=== PATIENT | male | born 1995 | race Caucasian/White ===

== ENCOUNTER 2017-06-19 06:21 | Emergency (ER) | payer SELFPAY ==
[~2017-06-19] VITALS: Ht 180.3 cm; Wt 63.8 kg
[~2017-06-19 06:21] MED LIST: ABILIFY1 MG/ML OR; ASMANEX IN; CEPHALEXIN500 MG OR; INVEGA3 MG OR; LORTAB 5 OR; NAPROSYN500 MG OR; NO HOME MEDS; PROVENTIL INH17 GM IN; PROZAC10 MG OR; RISPERDAL2 MG OR
[2017-06-19] MEDS ORDERED: CEPHALEXIN500 MG PO (06:31)
[2017-06-19 08:13] LABS: HEMATOCRIT 37.2 % (39.0-50.0); HEMOGLOBIN 13.4 g/dl (14.0-18.0); IMMATURE GRANULOCYTES 0.3 % (0.0-1.0); MEAN CORPUSCULAR HGB 32.8 pG CALC (26.0-32.0); NEUT# 10.69 thou/uL (1.82-7.42); RED BLOOD COUNT 4.09 mill/uL (4.70-6.10); RED CELL DISTRI WIDTH 11.9 % (11.5-15.5)
[2017-06-19 08:22] LABS: ALBUMIN 4.4 g/dL (3.2-5.0); ALKALINE PHOSPHATASE 89 u/l (38-126); BILIRUBIN, TOTAL 0.6 mg/dL (0.0-1.4); BUN 16 mg/dL (9-20); BUN/CREATININE RATIO 17 (12-20 (CALC)); CALCIUM 9.8 mg/dL (8.4-10.2); CARBON DIOXIDE 27 mmol/l (22-30); CHLORIDE 99 mmol/l (95-108); GFR > 60 ML/MIN (>=60 (CALC)); GFR FOR AFR.AMER. > 60 ML/MIN (>=60 (CALC)); GLUCOSE 96 mg/dL (75-110); POTASSIUM 3.6 mmol/l (3.5-5.1); SGOT/AST 23 u/l (17-59); SGPT/ALT 32 u/l (21-72); TOTAL PROTEIN 7.4 g/dL (6.3-8.2)
[2017-06-19 08:25] LABS: ANION GAP 17 (6-22 (CALC)); SODIUM 139 mmol/l (137-146)
[2017-06-19] MEDS ORDERED: LORTAB 5-325 MG1 TAB PO (09:26)
[2017-06-19] MEDS ORDERED: AUGMENTIN875TAB PO (09:26)
[2017-06-19 09:28] VITALS: BP 133/95
== END 2017-06-19 09:36 | disposition home or self-care (01) | DRG 159 ==
LOC: ED 06:21
PROVIDERS: Emergency Medicine
DX: K04.7 Periapical abscess without sinus (principal); R22.0 Localized swelling, mass and lump, head; K08.89 Other specified disorders of teeth and supporting structures
CPT/HCPCS: Q9967

== ENCOUNTER 2017-06-25 14:40 | Emergency (ER) | payer SELFPAY ==
[~2017-06-25] VITALS: Ht 180.3 cm; Wt 73.0 kg
[~2017-06-25 14:40] MED LIST changes: +AUGMENTIN875TAB PO; +CEPHALEXIN500 MG PO; +LORTAB 5-325 MG1 TAB PO
[2017-06-25] MEDS ORDERED: KEFLEX500 M1 PO (14:56)
[2017-06-25] MEDS ORDERED: AMOX/K CLAV875 M1 PO (14:57)
[2017-06-25] MEDS ORDERED: LORTAB 10-325 M1 TAB PO (14:58)
[2017-06-25] MEDS ORDERED: AUGMENTIN875TAB PO (16:10)
[2017-06-25] MEDS ORDERED: ZOFRAN4 M1 PO (16:10)
[2017-06-25] MEDS ORDERED: NORCO1 TA1 PO (16:10)
[2017-06-25 16:40] VITALS: BP 145/88
== END 2017-06-25 16:45 | disposition home or self-care (01) | DRG 159 ==
LOC: ED 14:40
DX: K08.89 Other specified disorders of teeth and supporting structures (principal); K04.7 Periapical abscess without sinus; S02.5XXA Fracture of tooth (traumatic), initial encounter for closed fracture; R22.0 Localized swelling, mass and lump, head

== ENCOUNTER 2017-07-09 18:52 | Emergency (ER) | payer SELFPAY ==
[~2017-07-09] VITALS: Ht 152.4 cm; Wt 63.8 kg
[~2017-07-09 18:52] MED LIST changes: +AMOX/K CLAV875 M1 PO; +KEFLEX500 M1 PO; +LORTAB 10-325 M1 TAB PO; +NORCO1 TA1 PO; +ZOFRAN4 M1 PO
[2017-07-09] MEDS ORDERED: LORTAB 10-325 M1 TAB PO (19:52)
[2017-07-09 19:55] VITALS: BP 149/83
== END 2017-07-09 19:55 | disposition home or self-care (01) | DRG 159 ==
LOC: ED 18:52
DX: K08.89 Other specified disorders of teeth and supporting structures (principal); K04.7 Periapical abscess without sinus

== ENCOUNTER 2017-12-04 11:07 | Emergency (ER) | payer SELFPAY ==
[~2017-12-04] VITALS: Ht 182.9 cm; Wt 66.8 kg
[2017-12-04 12:14] LABS: ANION GAP 18 (6-22 (CALC)); BUN 16 mg/dL (9-20); BUN/CREATININE RATIO 20 (12-20 (CALC)); CALCIUM 10.6 mg/dL (8.4-10.2); CARBON DIOXIDE 26 mmol/l (22-30); CHLORIDE 106 mmol/l (95-108); CREATININE 0.8 mg/dL (0.7-1.3); GFR > 60 ML/MIN (>=60 (CALC)); GFR FOR AFR.AMER. > 60 ML/MIN (>=60 (CALC)); GLUCOSE 108 mg/dL (75-110); SODIUM 145 mmol/l (137-146)
[2017-12-04 13:32] VITALS: BP 134/88
== END 2017-12-04 13:35 | disposition home or self-care (01) | DRG 556 ==
LOC: ED 11:07
PROVIDERS: Family Medicine
DX: M62.838 Other muscle spasm (principal); F17.290 Nicotine dependence, other tobacco product, uncomplicated; I37.0 Nonrheumatic pulmonary valve stenosis

== ENCOUNTER 2019-05-27 09:13 | Emergency (ER) | payer SELFPAY ==
[~2019-05-27] VITALS: Ht 182.9 cm; Wt 70.0 kg
[2019-05-27] MEDS ORDERED: CYCLOBENZAPR5 MG PO (09:57)
[2019-05-27 10:02] VITALS: BP 138/66
== END 2019-05-27 10:08 | disposition home or self-care (01) | DRG 159 ==
LOC: ED 09:13
DX: M26.623 Arthralgia of bilateral temporomandibular joint (principal); F17.200 Nicotine dependence, unspecified, uncomplicated

== ENCOUNTER 2019-06-05 08:45 | Emergency (ER) | payer SELFPAY ==
[~2019-06-05] VITALS: Ht 182.9 cm; Wt 79.5 kg
[~2019-06-05 08:45] MED LIST changes: +CYCLOBENZAPR5 MG PO
[2019-06-05] MEDS ORDERED: AMOXICILLIN500 M2 PO (08:55)
[2019-06-05] MEDS ORDERED: MOTRIN800 MG PO (08:56)
[2019-06-05 09:26] VITALS: BP 144/98
== END 2019-06-05 09:47 | disposition home or self-care (01) | DRG 159 ==
LOC: ED 08:45
DX: K04.7 Periapical abscess without sinus (principal)

== ENCOUNTER 2020-09-22 11:28 | Emergency (ER) | payer SELFPAY ==
[~2020-09-22] VITALS: Ht 182.9 cm; Wt 59.0 kg
[~2020-09-22 11:28] MED LIST changes: +AMOXICILLIN500 M2 PO; +AMOXICILLIN500 MG PO; +IBUPROFEN600 MG PO; +MOTRIN800 MG PO
[2020-09-22 12:01] LABS: HEMATOCRIT 42.2 % (39.0-50.0); IMMATURE GRANULOCYTES 0.3 % (0.0-5.0); MEAN CELL VOLUME 95.3 fL CALC (80.0-100.0); MEAN CORPUSCULAR HGB 31.6 pG CALC (26.0-32.0); MEAN CORPUSCULAR HGB CONC 33.2 g/dL CAL (32.0-36.0); NEUT# 4.52 thou/uL (1.82-7.42); RED BLOOD COUNT 4.43 mill/uL (4.70-6.10); RED CELL DISTRI WIDTH 13.5 % (11.5-15.5)
[2020-09-22 12:07] LABS: URINE BILIRUBIN - DIPSTICK NEGATIVE (NEGATIVE); URINE BLOOD DIPSTICK NEGATIVE (NEGATIVE); URINE COLOR YELLOW; URINE GLUCOSE - DIPSTICK NEGATIVE (NEGATIVE); URINE KETONE NEGATIVE (NEGATIVE); URINE LEUK ESTERASE NEGATIVE (NEGATIVE); URINE NITRITE - DIPSTICK NEGATIVE (Negative); URINE PROTEIN - DIPSTICK NEGATIVE (NEG-TRACE); URINE UROBILINOGEN - DIPSTICK 0.2 E.U./dL (0.2)
[2020-09-22 12:17] LABS: ALBUMIN 4.3 g/dL (3.2-5.0); ALKALINE PHOSPHATASE 76 u/l (38-126); AMYLASE 79 u/l (30-110); ANION GAP 11 (6-22 (CALC)); BILIRUBIN, TOTAL 0.3 mg/dL (0.0-1.4); BUN 10 mg/dL (9-20); BUN/CREATININE RATIO 14 (12-20 (CALC)); CARBON DIOXIDE 24 mmol/l (22-30); CHLORIDE 109 mmol/l (95-108); CREATININE 0.7 mg/dL (0.7-1.3); GFR > 60 ML/MIN (>=60 (CALC)); GFR FOR AFR.AMER. > 60 ML/MIN (>=60 (CALC)); LIPASE 111 u/l (23-300); POTASSIUM 4.2 mmol/l (3.5-5.1); SGOT/AST 35 u/l (17-59); SODIUM 140 mmol/l (137-146); TOTAL PROTEIN 6.9 g/dL (6.3-8.2)
[2020-09-22 12:21] LABS: ACT PARTIAL THROMBO TIME 23.8 SECONDS (20.0-32.5); PROTHROMBIN TIME 9.7 SECONDS (9.0-12.5)
[2020-09-22 12:29] LABS: MYOGLOBIN 34 ng/mL (0 - 121)
[2020-09-22 13:03] LABS: D-DIMER 0.28 mg/L (0.19-0.60)
[2020-09-22 14:40] VITALS: BP 129/84
== END 2020-09-22 14:40 | disposition home or self-care (01) | DRG 313 ==
LOC: ED 11:28
DX: R07.9 Chest pain, unspecified (principal); I37.0 Nonrheumatic pulmonary valve stenosis; I27.20 Pulmonary hypertension, unspecified
CPT/HCPCS: Q9967

== ENCOUNTER 2020-12-01 11:59 | Emergency (ER) | payer SELFPAY ==
[~2020-12-01] VITALS: Ht 182.9 cm; Wt 77.2 kg
[2020-12-01 13:08] VITALS: BP 139/81
== END 2020-12-01 13:08 | disposition home or self-care (01) | DRG 605 ==
LOC: ED 11:59
DX: S61.211A Laceration without foreign body of left index finger without damage to nail, initial encounter (principal); I37.8 Other nonrheumatic pulmonary valve disorders; W26.0XXA Contact with knife, initial encounter; Y93.89 Activity, other specified; Y92.009 Unspecified place in unspecified non-institutional (private) residence as the place of occurrence of the external cause

== ENCOUNTER 2021-03-21 16:32 | Emergency (ER) | payer SELFPAY ==
[2021-03-21] MEDS ORDERED: AMOXICILLIN875 MG PO (16:53)
[2021-03-21 17:02] VITALS: BP 112/77
== END 2021-03-21 17:02 | disposition home or self-care (01) | DRG 159 ==
LOC: ED 16:32
DX: K02.9 Dental caries, unspecified (principal); I10 Essential (primary) hypertension; I37.0 Nonrheumatic pulmonary valve stenosis; F17.200 Nicotine dependence, unspecified, uncomplicated

== ENCOUNTER 2021-05-10 18:57 | Emergency (ER) | payer SELFPAY ==
[~2021-05-10] VITALS: Ht 182.9 cm; Wt 68.0 kg
[~2021-05-10 18:57] MED LIST changes: +AMOXICILLIN875 MG PO
[2021-05-10] MEDS ORDERED: AMOXICILLIN875 MG PO (19:26)
[2021-05-10 19:30] VITALS: BP 147/97
== END 2021-05-10 19:30 | disposition home or self-care (01) | DRG 158 ==
LOC: ED 18:57
DX: K04.7 Periapical abscess without sinus (principal); K02.9 Dental caries, unspecified; M84.68XA Pathological fracture in other disease, other site, initial encounter for fracture; I10 Essential (primary) hypertension; I37.0 Nonrheumatic pulmonary valve stenosis; F17.210 Nicotine dependence, cigarettes, uncomplicated

== ENCOUNTER 2021-11-22 11:08 | Emergency (ER) | payer SELFPAY ==
[~2021-11-22] VITALS: Ht 182.9 cm; Wt 150.0 kg
[2021-11-22 11:20] VITALS: BP 125/92
[2021-11-22] MEDS ORDERED: ZPAK PO (12:41)
== END 2021-11-22 13:00 | disposition home or self-care (01) | DRG 203 ==
LOC: ED 11:08
DX: J40 Bronchitis, not specified as acute or chronic (principal); I10 Essential (primary) hypertension; I37.0 Nonrheumatic pulmonary valve stenosis; Z87.891 Personal history of nicotine dependence; Z20.822 Contact with and (suspected) exposure to COVID-19

== ENCOUNTER 2022-01-13 16:51 | Emergency (ER) | payer SELFPAY ==
[~2022-01-13] VITALS: Ht 182.9 cm; Wt 68.0 kg
[~2022-01-13 16:51] MED LIST changes: +ZPAK PO
[2022-01-13] MEDS ORDERED: VOLTAREN75 MG PO (19:27)
[2022-01-13] MEDS ORDERED: AMOXICILLIN500 MG PO (19:27)
[2022-01-13] MEDS ORDERED: NO HOME MEDS (20:27)
[2022-01-13 20:59] VITALS: BP 136/97
== END 2022-01-13 20:59 | disposition home or self-care (01) | DRG 159 ==
LOC: ED 16:51
DX: K04.7 Periapical abscess without sinus (principal); K02.9 Dental caries, unspecified; I10 Essential (primary) hypertension; I37.0 Nonrheumatic pulmonary valve stenosis; F17.200 Nicotine dependence, unspecified, uncomplicated

== ENCOUNTER 2022-03-26 07:38 | Emergency (ER) | payer SELFPAY ==
[~2022-03-26] VITALS: Ht 188 cm; Wt 68.1 kg
[~2022-03-26 07:38] MED LIST changes: +VOLTAREN75 MG PO
[2022-03-26 07:45] VITALS: BP 142/99
[2022-03-26 08:00] VITALS: BP 127/83
[2022-03-26 08:30] VITALS: BP 128/82
[2022-03-26 08:35] LABS: HEMOGLOBIN 15.4 g/dl (14.0-18.0); IMMATURE GRANULOCYTES 0.1 % (0.0-5.0); MEAN CELL VOLUME 97.4 fL CALC (80.0-100.0); MEAN CORPUSCULAR HGB 33.3 pG CALC (26.0-32.0); MEAN CORPUSCULAR HGB CONC 34.2 g/dL CAL (32.0-36.0); NEUT# 4.41 thou/uL (1.82-7.42); RED BLOOD COUNT 4.62 mill/uL (4.70-6.10); RED CELL DISTRI WIDTH 12.7 % (11.5-15.5)
[2022-03-26 08:48] LABS: ALBUMIN 4.3 g/dL (3.2-5.0); ALKALINE PHOSPHATASE 96 u/l (38-126); BUN 12 mg/dL (9-20); BUN/CREATININE RATIO 14 (12-20 (CALC)); CHLORIDE 103 mmol/l (95-108); CREATININE 0.9 mg/dL (0.7-1.3); GFR > 60 ML/MIN (>=60 (CALC)); GFR FOR AFR.AMER. > 60 ML/MIN (>=60 (CALC)); LIPASE 37 u/l (23-300); POTASSIUM 4.3 mmol/l (3.5-5.1); SGOT/AST 32 u/l (17-59); SODIUM 138 mmol/l (137-146); TOTAL PROTEIN 7.2 g/dL (6.3-8.2)
[2022-03-26 08:50] LABS: ANION GAP 9 (6-22 (CALC)); BILIRUBIN, TOTAL 0.9 mg/dL (0.0-1.4); CARBON DIOXIDE 30 mmol/l (22-30)
[2022-03-26 09:00] VITALS: BP 135/84
[2022-03-26 09:19] LABS: URINE BILIRUBIN - DIPSTICK NEGATIVE (NEGATIVE); URINE BLOOD DIPSTICK NEGATIVE (NEGATIVE); URINE COLOR YELLOW; URINE GLUCOSE - DIPSTICK NEGATIVE (NEGATIVE); URINE KETONE NEGATIVE (NEGATIVE); URINE LEUK ESTERASE NEGATIVE (NEGATIVE); URINE PROTEIN - DIPSTICK NEGATIVE (NEG-TRACE); URINE SPECIFIC GRAVITY 1.015; URINE UROBILINOGEN - DIPSTICK 0.2 E.U./dL (0.2)
[2022-03-26 09:30] VITALS: BP 121/73
[2022-03-26 09:34] LABS: URINE NITRITE - DIPSTICK NEGATIVE (Negative)
[2022-03-26 09:39] LABS: ACT PARTIAL THROMBO TIME 26.4 SECONDS (20.0-32.5)
[2022-03-26 09:51] LABS: D-DIMER 0.29 mg/L (0.19-0.60)
[2022-03-26 10:00] VITALS: BP 115/73
[2022-03-26] MEDS ORDERED: PREDNISONE20 MG PO (10:03)
[2022-03-26] MEDS ORDERED: PROVENTIL108 MCG/AC PO (10:03)
== END 2022-03-26 10:44 | disposition home or self-care (01) | DRG 203 ==
LOC: ED 07:38
PROVIDERS: Internal Medicine
DX: J40 Bronchitis, not specified as acute or chronic (principal); I10 Essential (primary) hypertension; I37.0 Nonrheumatic pulmonary valve stenosis; F17.210 Nicotine dependence, cigarettes, uncomplicated

== ENCOUNTER 2022-05-07 10:09 | Emergency (ER) | payer SELFPAY ==
[~2022-05-07] VITALS: Ht 188 cm; Wt 63.5 kg
[~2022-05-07 10:09] MED LIST changes: +PREDNISONE20 MG PO; +PROVENTIL108 MCG/AC PO
[2022-05-07] MEDS ORDERED: AMOXICILLIN500 MG PO (10:51)
[2022-05-07] MEDS ORDERED: ULTRAM50 M1 PO (10:51)
[2022-05-07 11:08] VITALS: BP 131/86
== END 2022-05-07 11:08 | disposition home or self-care (01) | DRG 159 ==
LOC: ED 10:09
DX: K04.7 Periapical abscess without sinus (principal); K02.9 Dental caries, unspecified; K03.81 Cracked tooth; I10 Essential (primary) hypertension; I37.0 Nonrheumatic pulmonary valve stenosis; F17.210 Nicotine dependence, cigarettes, uncomplicated

== ENCOUNTER 2022-06-18 15:08 | Emergency (ER) | payer SELFPAY ==
[~2022-06-18] VITALS: Ht 182.9 cm; Wt 62.6 kg
[~2022-06-18 15:08] MED LIST changes: +ULTRAM50 M1 PO
[2022-06-18] MEDS ORDERED: AMOXICILLIN500 M2 PO (15:43)
[2022-06-18 16:00] VITALS: BP 141/105
== END 2022-06-18 16:30 | disposition home or self-care (01) | DRG 159 ==
LOC: ED 15:08
DX: K08.89 Other specified disorders of teeth and supporting structures (principal); I10 Essential (primary) hypertension; I37.0 Nonrheumatic pulmonary valve stenosis; F17.210 Nicotine dependence, cigarettes, uncomplicated

== ENCOUNTER 2022-07-20 14:49 | Emergency (ER) | payer SELFPAY ==
[2022-07-20] VITALS (7 sets, daily range): BP systolic 132–146; BP diastolic 88–110
[~2022-07-20] VITALS: Ht 182.9 cm; Wt 61.0 kg
[2022-07-20 15:22] LABS: HEMATOCRIT 42.4 % (39.0-50.0); HEMOGLOBIN 14.5 g/dl (14.0-18.0); IMMATURE GRANULOCYTES 0.1 % (0.0-5.0); MEAN CELL VOLUME 94.6 fL CALC (80.0-100.0); MEAN CORPUSCULAR HGB 32.4 pG CALC (26.0-32.0); MEAN CORPUSCULAR HGB CONC 34.2 g/dL CAL (32.0-36.0); NEUT# 5.02 thou/uL (1.82-7.42); RED BLOOD COUNT 4.48 mill/uL (4.70-6.10); RED CELL DISTRI WIDTH 12.2 % (11.5-15.5)
[2022-07-20 15:52] LABS: ALBUMIN 4.4 g/dL (3.2-5.0); ALKALINE PHOSPHATASE 78 u/l (38-126); ANION GAP 15 (6-22 (CALC)); BUN 11 mg/dL (9-20); BUN/CREATININE RATIO 14 (12-20 (CALC)); CARBON DIOXIDE 29 mmol/l (22-30); CHLORIDE 104 mmol/l (95-108); CPK 146 u/l (52-200); CREATININE 0.8 mg/dL (0.7-1.3); ETHYL ALCOHOL 0 mg/dl (0-30); GFR FOR AFR.AMER. > 60 ML/MIN (>=60 (CALC)); GFR OTHER RACES > 60 ML/MIN (>=60 (CALC)); POTASSIUM 5.1 mmol/l (3.5-5.1); SGOT/AST 38 u/l (17-59); SODIUM 143 mmol/l (137-146); TOTAL PROTEIN 6.9 g/dL (6.3-8.2)
[2022-07-20 15:54] LABS: BILIRUBIN, TOTAL 0.4 mg/dL (0.0-1.4)
[2022-07-20 18:27] LABS: URINE BILIRUBIN - DIPSTICK NEGATIVE (NEGATIVE); URINE BLOOD DIPSTICK NEGATIVE (NEGATIVE); URINE COLOR YELLOW; URINE GLUCOSE - DIPSTICK NEGATIVE (NEGATIVE); URINE KETONE NEGATIVE (NEGATIVE); URINE LEUK ESTERASE NEGATIVE (NEGATIVE); URINE PROTEIN - DIPSTICK NEGATIVE (NEG-TRACE); URINE UROBILINOGEN - DIPSTICK 0.2 E.U./dL (0.2)
[2022-07-20 18:36] LABS: URINE NITRITE - DIPSTICK NEGATIVE (Negative)
== END 2022-07-20 18:39 | disposition home or self-care (01) | DRG 179 ==
LOC: ED 14:49
PROVIDERS: Family Medicine
DX: U07.1 COVID-19 (principal); E86.0 Dehydration; R53.1 Weakness; R11.10 Vomiting, unspecified; I10 Essential (primary) hypertension; I37.0 Nonrheumatic pulmonary valve stenosis; F17.200 Nicotine dependence, unspecified, uncomplicated

== ENCOUNTER 2022-07-27 14:36 | Emergency (ER) | payer SELFPAY ==
[2022-07-27] VITALS (9 sets, daily range): BP systolic 101–141; BP diastolic 53–94
[~2022-07-27] VITALS: Ht 182.9 cm; Wt 63.6 kg
[2022-07-27 15:15] LABS: HEMATOCRIT 38.9 % (39.0-50.0); HEMOGLOBIN 13.3 g/dl (14.0-18.0); IMMATURE GRANULOCYTES 0.2 % (0.0-5.0); MEAN CELL VOLUME 92.8 fL CALC (80.0-100.0); MEAN CORPUSCULAR HGB 31.7 pG CALC (26.0-32.0); MEAN CORPUSCULAR HGB CONC 34.2 g/dL CAL (32.0-36.0); NEUT# 6.14 thou/uL (1.82-7.42); RED BLOOD COUNT 4.19 mill/uL (4.70-6.10); RED CELL DISTRI WIDTH 12.1 % (11.5-15.5)
[2022-07-27 15:30] LABS: ALBUMIN 4.1 g/dL (3.2-5.0); ALKALINE PHOSPHATASE 82 u/l (38-126); BILIRUBIN, TOTAL 0.5 mg/dL (0.0-1.4); BUN 9 mg/dL (9-20); BUN/CREATININE RATIO 13 (12-20 (CALC)); CARBON DIOXIDE 30 mmol/l (22-30); CHLORIDE 107 mmol/l (95-108); CREATININE 0.7 mg/dL (0.7-1.3); GFR FOR AFR.AMER. > 60 ML/MIN (>=60 (CALC)); GFR OTHER RACES > 60 ML/MIN (>=60 (CALC)); SGOT/AST 27 u/l (17-59); SODIUM 144 mmol/l (137-146); TOTAL PROTEIN 7.3 g/dL (6.3-8.2)
[2022-07-27 16:05] LABS: ANION GAP 11 (6-22 (CALC)); POTASSIUM 3.9 mmol/l (3.5-5.1)
== END 2022-07-27 16:46 | disposition home or self-care (01) | DRG 313 ==
LOC: ED 14:36
PROVIDERS: Family Medicine
DX: R07.9 Chest pain, unspecified (principal); I10 Essential (primary) hypertension; I37.0 Nonrheumatic pulmonary valve stenosis; F17.200 Nicotine dependence, unspecified, uncomplicated

== ENCOUNTER 2022-08-25 15:30 | Emergency (ER) | payer SELFPAY ==
[~2022-08-25] VITALS: Ht 182.9 cm; Wt 63.0 kg
[2022-08-25 15:56] VITALS: BP 130/86
[2022-08-25 16:00] VITALS: BP 121/81
[2022-08-25] MEDS ORDERED: ZYRTEC10 MG PO (16:10)
[2022-08-25 16:30] VITALS: BP 119/79
[2022-08-25 16:54] VITALS: BP 119/79
== END 2022-08-25 16:57 | disposition home or self-care (01) | DRG 153 ==
LOC: ED 15:30
DX: J02.9 Acute pharyngitis, unspecified (principal); I10 Essential (primary) hypertension; F17.200 Nicotine dependence, unspecified, uncomplicated; I37.0 Nonrheumatic pulmonary valve stenosis; Z20.822 Contact with and (suspected) exposure to COVID-19
CPT/HCPCS: J0561

== ENCOUNTER 2023-01-27 19:18 | Emergency (ER) | payer SELFPAY ==
[~2023-01-27] VITALS: Ht 182.9 cm; Wt 63.0 kg
[2023-01-27] VITALS (8 sets, daily range): BP systolic 116–142; BP diastolic 65–83
[~2023-01-27 19:18] MED LIST changes: +ZYRTEC10 MG PO
[2023-01-27 20:18] LABS: URINE BLOOD DIPSTICK NEGATIVE (NEGATIVE); URINE COLOR YELLOW; URINE GLUCOSE - DIPSTICK NEGATIVE (NEGATIVE); URINE KETONE NEGATIVE (NEGATIVE); URINE LEUK ESTERASE NEGATIVE (NEGATIVE); URINE PH 6.5 (4.5-8.0); URINE PROTEIN - DIPSTICK TRACE mg/dL (NEG-TRACE); URINE SPECIFIC GRAVITY 1.025
[2023-01-27 20:20] LABS: URINE BILIRUBIN - DIPSTICK SMALL (NEGATIVE); URINE NITRITE - DIPSTICK NEGATIVE (Negative)
[2023-01-28 00:29] VITALS: BP 136/83
== END 2023-01-28 00:18 | DRG 563 ==
LOC: ED 19:18
PROVIDERS: Emergency Medicine
PROC: 2W3MX1Z Immobilization of Left Lower Extremity using Splint (ICD-10-PCS; principal; 2023-01-27)
DX: S82.402A Unspecified fracture of shaft of left fibula, initial encounter for closed fracture (principal); V03.99XA Pedestrian with other conveyance injured in collision with car, pick-up truck or van, unspecified whether traffic or nontraffic accident, initial encounter; I10 Essential (primary) hypertension
CPT/HCPCS: J0690

== ENCOUNTER 2023-02-02 11:00 | Emergency (ER) | payer OTHER ==
[~2023-02-02] VITALS: Ht 182.9 cm; Wt 63.5 kg
[2023-02-02] MEDS ORDERED: NAPROXEN500 MG PO (12:26)
[2023-02-02] MEDS ORDERED: TRAMADOL HYDROC50 M1 PO (12:26)
[2023-02-02 13:07] VITALS: BP 134/88
== END 2023-02-02 13:09 | disposition home or self-care (01) | DRG 563 ==
LOC: ED 11:00
DX: S82.402A Unspecified fracture of shaft of left fibula, initial encounter for closed fracture (principal); S81.812A Laceration without foreign body, left lower leg, initial encounter; I10 Essential (primary) hypertension; I37.0 Nonrheumatic pulmonary valve stenosis; F17.210 Nicotine dependence, cigarettes, uncomplicated; Z53.29 Procedure and treatment not carried out because of patient's decision for other reasons; V09.9XXA Pedestrian injured in unspecified transport accident, initial encounter

== ENCOUNTER 2023-02-13 16:29 | Emergency (ER) | payer SELFPAY ==
[~2023-02-13] VITALS: Ht 182.9 cm; Wt 63.5 kg
[~2023-02-13 16:29] MED LIST changes: +NAPROXEN500 MG PO; +TRAMADOL HYDROC50 M1 PO
[2023-02-13 17:42] VITALS: BP 135/78
== END 2023-02-13 17:53 | disposition home or self-care (01) | DRG 561 ==
LOC: ED 16:29
DX: S82.92XD Unspecified fracture of left lower leg, subsequent encounter for closed fracture with routine healing (principal); V03.99XD Pedestrian with other conveyance injured in collision with car, pick-up truck or van, unspecified whether traffic or nontraffic accident, subsequent encounter; I10 Essential (primary) hypertension

== ENCOUNTER 2023-02-23 17:35 | Emergency (ER) | payer SELFPAY ==
[~2023-02-23] VITALS: Ht 182.9 cm; Wt 64.0 kg
[2023-02-23] MEDS ORDERED: KEFLEX500 MG PO (19:20)
[2023-02-23 19:35] VITALS: BP 114/77
== END 2023-02-23 19:44 | disposition home or self-care (01) | DRG 561 ==
LOC: ED 17:35
DX: S82.402D Unspecified fracture of shaft of left fibula, subsequent encounter for closed fracture with routine healing (principal); X58.XXXD Exposure to other specified factors, subsequent encounter

== ENCOUNTER 2023-07-16 14:20 | Emergency (ER) | payer SELFPAY ==
[~2023-07-16] VITALS: Ht 188 cm; Wt 64.4 kg
[~2023-07-16 14:20] MED LIST changes: +KEFLEX500 MG PO
[2023-07-16 15:12] VITALS: BP 134/89
[2023-07-16 15:15] VITALS: BP 124/81
[2023-07-16 15:30] VITALS: BP 125/82
[2023-07-16] MEDS ORDERED: NAPROXEN500 MG PO (16:21)
[2023-07-16] MEDS ORDERED: FLOXIN OTIC0.3 % AS (16:27)
[2023-07-16 16:40] VITALS: BP 125/82
== END 2023-07-16 16:43 | disposition home or self-care (01) | DRG 556 ==
LOC: ED 14:20
DX: M79.605 Pain in left leg (principal); M54.50 Low back pain, unspecified; G89.29 Other chronic pain; H60.92 Unspecified otitis externa, left ear; I10 Essential (primary) hypertension; F17.210 Nicotine dependence, cigarettes, uncomplicated

== ENCOUNTER 2023-07-26 10:20 | Emergency (ER) | payer SELFPAY ==
[~2023-07-26] VITALS: Ht 188 cm; Wt 72.6 kg
[~2023-07-26 10:20] MED LIST changes: +FLOXIN OTIC0.3 % AS
[2023-07-26 10:38] VITALS: BP 119/82
[2023-07-26 11:00] VITALS: BP 142/100
[2023-07-26] MEDS ORDERED: AMOXICILLIN500 MG PO (11:09)
[2023-07-26] MEDS ORDERED: CLINDAMYCIN300 M1 PO (11:09)
[2023-07-26 11:16] VITALS: BP 142/100
== END 2023-07-26 11:26 | disposition home or self-care (01) | DRG 159 ==
LOC: ED 10:20
DX: K03.81 Cracked tooth (principal); R00.2 Palpitations; I10 Essential (primary) hypertension; I37.0 Nonrheumatic pulmonary valve stenosis; F17.210 Nicotine dependence, cigarettes, uncomplicated

== ENCOUNTER 2024-05-30 14:45 | Emergency (ER) | payer SELFPAY ==
[~2024-05-30] VITALS: Ht 188 cm; Wt 54.0 kg
[~2024-05-30 14:45] MED LIST changes: +CLINDAMYCIN300 M1 PO
[2024-05-30] MEDS ORDERED: PENICILLN VK500 M1 PO (15:31)
[2024-05-30] MEDS ORDERED: PENicillin V POTASSIUM 500 MG/TAB PO ONE (15:35)
[2024-05-30 15:37] VITALS: BP 112/74
== END 2024-05-30 15:45 | disposition home or self-care (01) | DRG 159 ==
LOC: ED 14:45
DX: K04.7 Periapical abscess without sinus (principal); I10 Essential (primary) hypertension; Z72.0 Tobacco use